=== PATIENT | male | born 1950 | race Caucasian/White ===

== ENCOUNTER 2021-04-07 09:13 | Observation (INO) | payer OTHER, MEDICARE ==
[~2021-04-07] VITALS: Ht 177.8 cm; Wt 157.7 kg
[2021-04-07] MEDS ORDERED: PARO20 PO (09:29)
[2021-04-07] MEDS ORDERED: Crestor20 MG PO (09:29)
[2021-04-07] MEDS ORDERED: Aspirin EC81 MG PO (09:29)
[2021-04-07 09:44] LABS: BASOPHILS ABSOLUTE AUTO 0.05 K/mm3 (0.00-0.23); BASOPHILS PERCENT AUTO 1 % (0-2); EOSINOPHILS ABSOLUTE AUTO 0.28 K/mm3 (0.00-0.68); EOSINOPHILS PERCENT AUTO 4 % (0-6); Hematocrit 45.9 % (37.0-53.0); Hemoglobin 15.2 g/dL (13.5-17.5); IMMATURE GRAN ABSOLUTE AUTO 0.05 K/mm3 (0.00-0.10); IMMATURE GRAN PERCENT AUTO 1 % (0-1); LYMPHOCYTES ABSOLUTE AUTO 1.61 K/mm3 (0.84-5.20); LYMPHOCYTES PERCENT AUTO 23 % (21-46); MONOCYTES ABSOLUTE AUTO 0.55 K/mm3 (0.16-1.47); MONOCYTES PERCENT AUTO 8 % (4-13); Mean Corpuscular HGB 30.6 pg (26.0-34.0); Mean Corpuscular HGB Conc 33.1 g/dL (31.5-36.5); Mean Corpuscular Volume 93 fL (80-100); NEUTROPHILS ABSOLUTE AUTO 4.47 K/mm3 (1.96-9.15); NEUTROPHILS PERCENT AUTO 64 % (41-73); Platelet Count 148 K/mm3 (150-400); RDW Coefficient Variation 13.4 % (11.7-14.2); RDW Standard Deviation 45.5 fL (35.1-46.3); Red Blood Cell Count 4.96 M/mm3 (4.30-5.90); White Blood Cell Count 7.01 K/mm3 (4.00-11.30)
[2021-04-07 10:03] LABS: Alanine Aminotransfer (ALT/SGP 38 U/L (12-78); Albumin, Blood 3.2 g/dL (3.4-5.0); Albumin/Globulin Ratio 0.9 (0.8-1.8); Alk Phos 106 U/L (50-136); Anion Gap 6 mmol/L (6-16); Aspartate Aminotrans (AST/SGOT 22 U/L (12-37); Bilirubin, Total 0.6 mg/dL (0.1-1.0); Blood Urea Nitrogen 11 mg/dL (8-24); Bun/Creatinine Ratio 11.9 (12.0-20.0); CO2, Blood 28 mmol/L (21-32); Calcium, Blood 8.5 mg/dL (8.5-10.1); Chloride, Blood 104 mmol/L (98-108); Creatinine, Blood 0.92 mg/dL (0.60-1.20); Globulin, Blood 3.6 g/dL (2.2-4.0); Glomerular Filtration Rate >60 (60-); Glucose, Blood 129 mg/dL (70-99); Potassium, Blood 3.9 mmol/L (3.5-5.5); Sodium, Blood 138 mmol/L (136-145); Total Protein, Blood 6.8 g/dL (6.4-8.2); Troponin I <0.015 ng/mL (0.000-0.040)
[2021-04-07 14:12] LABS: CPK Creatine Kinase 47 U/L (39-308)
[2021-04-07] MEDS ORDERED: PRAVASTATIN SOD10 MG PO (14:17)
[2021-04-07] MEDS ORDERED: METO25 PO (14:17)
[2021-04-07] MEDS ORDERED: Lisinopril2.5 MG PO (14:18)
[2021-04-07] MEDS ORDERED: HYDCHL25 PO (14:18)
[2021-04-07] MEDS ORDERED: ISOSORBIDE MONO10 MG PO (14:18)
--- NOTE | 2021-04-07 16:49 | NUR ---
ADMISSION/SHIFT SUMMARY ED ADMIT AT 1450. PATIENT ORIENTED TO ROOM. DENIES PAIN, NAUSEA, SHORTNESS OF BREATH. TELEMETRY SHOWS PACED AT 60 PER SUSTAINABLE SYSTEMS ANALYST. PATIENT UP INDEPENDENT IN ROOM. PLEASANT AND COOPERATIVE WITH CARE.
--- NOTE | 2021-04-07 22:43 | NUR ---
ASSUMPTION OF CARE. AOX3, INDPENDENT IN THE ROOM. REPORTS NO CHEST PAIN SINCE ARRIVAL TO THE FLOOR. [place] IS HOMELESS AND [place]. HE DOES NOT KNOW WHAT MEDICATION HE IS SUPPOSE TO BE ON OR THE DOSAGE HIS PILLS ARE IN HIS [place] THE [place]. DENIES ANY CARDIAC SYMPTOMS, PAIN, SOB, N/T, OR BLURRED VISION. TELE REPORTS SINUS WITH 1 DEGREE BLOCK RUNNING 60. VS WNL. AFEBRILE. WILL CONTINUE TO MONITOR. PATIENT CURRENTLY RESTING IN THE ROOM WATCHING TV. CALL LIGHT IN REACH.
[2021-04-08 02:16] LABS: BASOPHILS ABSOLUTE AUTO 0.03 K/mm3 (0.00-0.23); BASOPHILS PERCENT AUTO 0 % (0-2); EOSINOPHILS ABSOLUTE AUTO 0.33 K/mm3 (0.00-0.68); EOSINOPHILS PERCENT AUTO 5 % (0-6); Hematocrit 44.3 % (37.0-53.0); Hemoglobin 14.9 g/dL (13.5-17.5); IMMATURE GRAN ABSOLUTE AUTO 0.05 K/mm3 (0.00-0.10); IMMATURE GRAN PERCENT AUTO 1 % (0-1); LYMPHOCYTES ABSOLUTE AUTO 1.87 K/mm3 (0.84-5.20); LYMPHOCYTES PERCENT AUTO 26 % (21-46); MONOCYTES ABSOLUTE AUTO 0.71 K/mm3 (0.16-1.47); MONOCYTES PERCENT AUTO 10 % (4-13); Mean Corpuscular HGB 30.7 pg (26.0-34.0); Mean Corpuscular HGB Conc 33.6 g/dL (31.5-36.5); Mean Corpuscular Volume 91 fL (80-100); Mean Platelet Volume 11.4 fL (9.1-12.4); NEUTROPHILS ABSOLUTE AUTO 4.16 K/mm3 (1.96-9.15); NEUTROPHILS PERCENT AUTO 58 % (41-73); Platelet Count 143 K/mm3 (150-400); RDW Coefficient Variation 13.3 % (11.7-14.2); RDW Standard Deviation 45.3 fL (35.1-46.3); Red Blood Cell Count 4.85 M/mm3 (4.30-5.90); White Blood Cell Count 7.15 K/mm3 (4.00-11.30)
[2021-04-08 02:35] LABS: CPK Creatine Kinase 38 U/L (39-308)
[2021-04-08 02:36] LABS: Alanine Aminotransfer (ALT/SGP 34 U/L (12-78); Albumin, Blood 3.2 g/dL (3.4-5.0); Albumin/Globulin Ratio 0.9 (0.8-1.8); Alk Phos 99 U/L (50-136); Anion Gap 5 mmol/L (6-16); Aspartate Aminotrans (AST/SGOT 22 U/L (12-37); Bilirubin, Total 0.9 mg/dL (0.1-1.0); Blood Urea Nitrogen 11 mg/dL (8-24); Bun/Creatinine Ratio 10.8 (12.0-20.0); CO2, Blood 29 mmol/L (21-32); Calcium, Blood 8.7 mg/dL (8.5-10.1); Chloride, Blood 102 mmol/L (98-108); Creatinine, Blood 1.02 mg/dL (0.60-1.20); Globulin, Blood 3.4 g/dL (2.2-4.0); Glomerular Filtration Rate >60 (60-); Glucose, Blood 108 mg/dL (70-99); Potassium, Blood 3.9 mmol/L (3.5-5.5); Sodium, Blood 136 mmol/L (136-145); Total Protein, Blood 6.6 g/dL (6.4-8.2)
--- NOTE | 2021-04-08 06:17 | NUR ---
SHIFT SUMMARY: AOX3, INDEPENDENT. NO CP OR CARDIAC SYMPTOMS THIS SHIFT. VSS/AFEBRILE. TELE REPORTED SINUS WITH 1ST DEGREE HEART BLOCK. NO PAIN OR DISCOMFORT. GOOD APPETITE. MILD EDEMA IN LEGS. CURRENTLY LIVING IN TRUCK, JUST M[place], NEEDS TO GET SET UP WITH [facility]. NO OTHER CHANGES TO REPORT. CALL LIGHT REMAINS IN REACH AND USED APPROPRIATLY.
--- NOTE | 2021-04-08 18:40 | NUR ---
SHIFT SUMMARY NO ACUTE CHANGES T/O SHIFT, A&O, CALM AND COOPERATIVE. INDEPENDENT IN ROOM. DENIED ANY CHEST PAIN OR CARDIAC SYMPTOMS T/O SHIFT. PART ONE OF STRESS TEST COMPLETED TODAY, NEXT PORTION WILL BE DONE IN THE MORNING. CARE MANAGEMENT WORKING WITH PT AND [facility] REGARDING DC PLAN. PT IS CURRENTLY RESTING IN BED TALKING ON THE PHONE, CALL LIGHT WITHIN REACH.
--- NOTE | 2021-04-08 22:21 | NUR ---
ASSUMPTION OF CARE. AOX3, INDEPENDENT. DOING WELL AFTER FIRST PART OF STRESS TEST. STATES NOT MUCH CHANGES TODAY. VSS/AFEBRILE. AWARE OF NPO AFTER MIDNIGHT AND NO CAFFINE. NO CHEST PAIN TODAY, OR OTHER SYMPTOMS. VERY CONCERNED ABOUT HIS BELONGINGS AT THE [place]. MEDS GIVEN. PATIENT IN ROOM WATCHING TV. CALL LIGHT IN REACH.
--- NOTE | 2021-04-09 07:21 | NUR ---
SHIFT SUMMARY: AOX3, INDEPENDENT IN THE ROOM. NO CHEST PAIN OR CARDIAC SYMPTOMS NOTED. TELE REPORTS PACED RUNNING IN THE 60'S. NO EVENTS NOTED. TRACE EDEMA TO BLE. VSS/AFEBRILE. NPO AFTER MIDNIGHT EXCEPT FOR AM MEDS. SLEPT WELL. 2ND PART OF STRESS TEST TODAY. REPORT GIVEN TO DAYSHIFT. CALL LIGHT IN REACH.
--- NOTE | 2021-04-09 15:55 | NUR ---
PT DISCHARGE @ APPROX 1600. IV REMOVED AND SITE APPEARED WNL. DISCHARGE PAPERWORK REVIEWED WITH PT. NO NEW MEDICATIONS NEEDED TO BE FAXED TO PHARMACY. PT STATED HE HAD ALL OF HIS BELONGINGS INCLUDING HIS HEARING AIDS.
== END 2021-04-09 15:55 | disposition home or self-care (01) ==
LOC: ER 09:13 → MEDS 09:14 → ERHOLD 09:14 → MEDS 14:57
PROVIDERS: Emergency Medicine; ADMIT Internal Medicine
DX: R07.9 Chest pain, unspecified (principal); I25.10 Atherosclerotic heart disease of native coronary artery without angina pectoris; I10 Essential (primary) hypertension; I25.2 Old myocardial infarction; E66.9 Obesity, unspecified; E78.00 Pure hypercholesterolemia, unspecified; Z79.82 Long term (current) use of aspirin; Z95.5 Presence of coronary angioplasty implant and graft; Z95.0 Presence of cardiac pacemaker; Z59.0 Homelessness; Z68.43 Body mass index [BMI] 50.0-59.9, adult
CPT/HCPCS: 36415; 71045; 78452; 80053; 82550; 84484; 85025; 93005; 93010; 93017; 96372; 99285-25; A9270; A9500; G0378; J0706; J1650; J2785

== ENCOUNTER 2021-12-17 13:46 | Inpatient (IN) | payer OTHER ==
[~2021-12-17] VITALS: Ht 177.8 cm; Wt 158.3 kg
[~2021-12-17 13:46] MED LIST: Aspirin EC81 MG PO; Crestor20 MG PO; HYDCHL25 PO; ISOSORBIDE MONO10 MG PO; Lisinopril2.5 MG PO; METO25 PO; PARO20 PO; PRAVASTATIN SOD10 MG PO
[2021-12-17 14:53] LABS: BASOPHILS ABSOLUTE AUTO 0.04 K/mm3 (0.00-0.23); BASOPHILS PERCENT AUTO 0 % (0-2); EOSINOPHILS ABSOLUTE AUTO 0.12 K/mm3 (0.00-0.68); EOSINOPHILS PERCENT AUTO 1 % (0-6); Hematocrit 45.7 % (37.0-53.0); Hemoglobin 15.3 g/dL (13.5-17.5); IMMATURE GRAN ABSOLUTE AUTO 0.05 K/mm3 (0.00-0.10); IMMATURE GRAN PERCENT AUTO 0 % (0-1); LYMPHOCYTES PERCENT AUTO 16 % (21-46); MONOCYTES ABSOLUTE AUTO 1.09 K/mm3 (0.16-1.47); MONOCYTES PERCENT AUTO 9 % (4-13); Mean Corpuscular HGB 30.2 pg (26.0-34.0); Mean Corpuscular HGB Conc 33.5 g/dL (31.5-36.5); Mean Corpuscular Volume 90 fL (80-100); Mean Platelet Volume 10.5 fL (9.1-12.4); NEUTROPHILS ABSOLUTE AUTO 8.54 K/mm3 (1.96-9.15); NEUTROPHILS PERCENT AUTO 73 % (41-73); Platelet Count 154 K/mm3 (150-400); RDW Coefficient Variation 13.3 % (11.7-14.2); RDW Standard Deviation 43.6 fL (35.1-46.3); Red Blood Cell Count 5.07 M/mm3 (4.30-5.90); White Blood Cell Count 11.74 K/mm3 (4.00-11.30)
[2021-12-17] MEDS ORDERED: HYDCHL25 PO (14:54)
[2021-12-17 15:11] LABS: Anion Gap 5 mmol/L (6-16); Blood Urea Nitrogen 10 mg/dL (8-24); Bun/Creatinine Ratio 13.1 (12.0-20.0); CO2, Blood 28 mmol/L (21-32); Calcium, Blood 8.9 mg/dL (8.5-10.1); Chloride, Blood 104 mmol/L (98-108); Creatinine, Blood 0.76 mg/dL (0.60-1.20); Glomerular Filtration Rate >60 (60-); Glucose, Blood 119 mg/dL (70-99); Potassium, Blood 3.9 mmol/L (3.5-5.5); Sodium, Blood 137 mmol/L (136-145)
--- NOTE | 2021-12-17 17:45 | NUR ---
ARRIVES TO UNIT SBA TO HOSPITAL BED THEN REQUESTS TO USE BATHROOM. SBA THEN RETURNS TO DANGLE AT BEDSIDE. HOME MEDS & ALLERGIES REVIEWED, BLOOD CONSENT SIGNED, THEN DAY SURGERY ARRIVED & PT [facility]. NO ASSESSMENT COMPLETED DUE TO SHORT TIME IN ROOM.
[2021-12-17] MEDS ORDERED: ELIQUIS5 M2 PO (17:57)
[2021-12-17] MEDS ORDERED: NITR.4SL SL (17:58)
[2021-12-17] MEDS ORDERED: PSEUDOEPHEDRINE30 M1 PO (17:59)
--- NOTE | 2021-12-17 19:38 | NUR ---
12/17/211937 Balwinder Collazo PT ON SCHEDULED ANTIBIOTICS AND RECIEVED PIOR TO ARRIVAL TO OR.
--- NOTE | 2021-12-18 05:28 | NUR ---
PRIMARY CARE SALES REPRESENTATIVE SUMMARY PT HAD APPY PROCEDURE PRIOR TO COMING TO FLOOR. PT AAOX4 BUT A BIT GROGGY ON ARRIVAL. PT CLEARED FAIRLY QUICKLY. LAP INCISIONS X3 ON ABD C/D/I. PT DENIES PAIN ASIDE FROM A SLIGHT DISCOMFORT AT TIMES WHEN MOVING. PT DENIES NEED FOR PAIN MEDICATIONS THUS FAR. UP AND OUT OF BED THIS AM TO USE RESTROOM, PT HAS VOIDED. NO BM TONIGHT. ON 2L O2 VIA NC POST PROCEDURE, O2 SATS DOWN TO 90-91% ON RA SO PT NOW ON 1L O2 SATTING MID 90'S. VSS, WILL CONTINUE TO MONITOR.
[2021-12-18 05:33] LABS: BASOPHILS ABSOLUTE AUTO 0.02 K/mm3 (0.00-0.23); BASOPHILS PERCENT AUTO 0 % (0-2); EOSINOPHILS PERCENT AUTO 0 % (0-6); Hematocrit 47.9 % (37.0-53.0); Hemoglobin 15.4 g/dL (13.5-17.5); IMMATURE GRAN PERCENT AUTO 1 % (0-1); LYMPHOCYTES ABSOLUTE AUTO 0.91 K/mm3 (0.84-5.20); LYMPHOCYTES PERCENT AUTO 6 % (21-46); MONOCYTES ABSOLUTE AUTO 0.54 K/mm3 (0.16-1.47); MONOCYTES PERCENT AUTO 4 % (4-13); Mean Corpuscular HGB 29.9 pg (26.0-34.0); Mean Corpuscular HGB Conc 32.2 g/dL (31.5-36.5); Mean Corpuscular Volume 93 fL (80-100); Mean Platelet Volume 10.7 fL (9.1-12.4); NEUTROPHILS PERCENT AUTO 90 % (41-73); Platelet Count 167 K/mm3 (150-400); RDW Coefficient Variation 13.2 % (11.7-14.2); RDW Standard Deviation 45.3 fL (35.1-46.3); Red Blood Cell Count 5.15 M/mm3 (4.30-5.90); White Blood Cell Count 14.87 K/mm3 (4.00-11.30)
[2021-12-18 06:31] LABS: Alanine Aminotransfer (ALT/SGP 83 U/L (12-78); Albumin, Blood 3.3 g/dL (3.4-5.0); Albumin/Globulin Ratio 0.9 (0.8-1.8); Alk Phos 111 U/L (50-136); Anion Gap 8 mmol/L (6-16); Aspartate Aminotrans (AST/SGOT 59 U/L (12-37); Bilirubin, Total 2.3 mg/dL (0.1-1.0); Blood Urea Nitrogen 16 mg/dL (8-24); CO2, Blood 27 mmol/L (21-32); Calcium, Blood 8.9 mg/dL (8.5-10.1); Chloride, Blood 102 mmol/L (98-108); Creatinine, Blood 0.89 mg/dL (0.60-1.20); Globulin, Blood 3.6 g/dL (2.2-4.0); Glomerular Filtration Rate >60 (60-); Glucose, Blood 169 mg/dL (70-99); Potassium, Blood 4.3 mmol/L (3.5-5.5); Sodium, Blood 137 mmol/L (136-145); Total Protein, Blood 6.9 g/dL (6.4-8.2)
[2021-12-18] MEDS ORDERED: AMOCLA875 PO (12:13)
[2021-12-18] MEDS ORDERED: HYDR1TAB94 PO (13:37)
--- NOTE | 2021-12-18 15:26 | NUR ---
1523 DISCHARGED TO HOME . PT HAS DENIED NEED FOR PAIN MEDS, AMBULATING IN ROOM. VOIDING CLEAR YELLOW URINE. PT PATO PO FOOD AND FLUIDS WITHOUT NAUSEA. PT VERBALIZES UNDERSTANDING OF DISCHARGE INSTRUCTIONS
== END 2021-12-18 15:19 | disposition home or self-care (01) | DRG 339 ==
LOC: ER 13:46 → SURS 15:32 → MEDS 15:32 → SURS 17:47
PROVIDERS: Emergency Medicine; Nurse Practitioner Acute Care; Surgery; ADMIT Internal Medicine
PROC: 0DTJ4ZZ Resection of Appendix, Percutaneous Endoscopic Approach (ICD-10-PCS; principal; 2021-12-17 18:30)
DX: K35.32 Acute appendicitis with perforation, localized peritonitis, and gangrene, without abscess (principal); Z68.43 Body mass index [BMI] 50.0-59.9, adult; Z66 Do not resuscitate; E66.01 Morbid (severe) obesity due to excess calories; I10 Essential (primary) hypertension; I25.10 Atherosclerotic heart disease of native coronary artery without angina pectoris; I48.0 Paroxysmal atrial fibrillation; I49.5 Sick sinus syndrome; M54.9 Dorsalgia, unspecified; G89.29 Other chronic pain; F43.10 Post-traumatic stress disorder, unspecified; E78.5 Hyperlipidemia, unspecified; I25.2 Old myocardial infarction; Z79.01 Long term (current) use of anticoagulants; Z95.5 Presence of coronary angioplasty implant and graft; Z95.0 Presence of cardiac pacemaker; Z90.49 Acquired absence of other specified parts of digestive tract; Z79.899 Other long term (current) drug therapy; Z79.82 Long term (current) use of aspirin; Z98.890 Other specified postprocedural states
CPT/HCPCS: 36415; 80048; 80053; 85025; 88304; 93005; 93010; 96365; 96375; 99285-25; A9270; J0694; J1100; J1170; J1885; J2250; J2405; J2704; J3010; J7030; J7050; J7120

== ENCOUNTER 2024-11-04 05:42 | Emergency (ER) | payer OTHER ==
[~2024-11-04] VITALS: Ht 177.8 cm; Wt 113.8 kg
[~2024-11-04 05:42] MED LIST changes: +AMOCLA875 PO; +ELIQUIS5 M2 PO; +HYDR1TAB94 PO; +NITR.4SL SL; +PSEUDOEPHEDRINE30 M1 PO
[2024-11-04 06:37] LABS: BASOPHILS ABSOLUTE AUTO 0.08 K/mm3 (0.00-0.23); BASOPHILS PERCENT AUTO 1 % (0-2); EOSINOPHILS ABSOLUTE AUTO 0.36 K/mm3 (0.00-0.68); EOSINOPHILS PERCENT AUTO 4 % (0-6); Hematocrit 44.8 % (37.0-53.0); Hemoglobin 15.4 g/dL (13.5-17.5); IMMATURE GRAN ABSOLUTE AUTO 0.14 K/mm3 (0.00-0.10); IMMATURE GRAN PERCENT AUTO 1 % (0-1); LYMPHOCYTES ABSOLUTE AUTO 1.83 K/mm3 (0.84-5.20); LYMPHOCYTES PERCENT AUTO 19 % (21-46); MONOCYTES ABSOLUTE AUTO 0.61 K/mm3 (0.16-1.47); MONOCYTES PERCENT AUTO 6 % (4-13); Mean Corpuscular HGB 31.6 pg (26.0-34.0); Mean Corpuscular HGB Conc 34.4 g/dL (31.5-36.5); Mean Corpuscular Volume 92 fL (80-100); NEUTROPHILS ABSOLUTE AUTO 6.71 K/mm3 (1.96-9.15); NEUTROPHILS PERCENT AUTO 69 % (41-73); Platelet Count 183 K/mm3 (150-400); RDW Coefficient Variation 13.4 % (11.7-14.2); RDW Standard Deviation 45.3 fL (35.1-46.3); Red Blood Cell Count 4.88 M/mm3 (4.30-5.90); White Blood Cell Count 9.73 K/mm3 (4.00-11.30)
[2024-11-04 07:00] LABS: Bun/Creatinine Ratio 12.4 (12.0-20.0); Calcium, Blood 9.4 mg/dL (8.5-10.1); Creatinine, Blood 0.96 mg/dL (0.60-1.20); Potassium, Blood 4.2 mmol/L (3.5-5.5)
[2024-11-04] MEDS ORDERED: BISA10S PR (07:32)
[2024-11-04] MEDS ORDERED: METO10 PO (07:32)
[2024-11-04 08:50] VITALS: BP 122/88
== END 2024-11-04 08:55 | disposition home or self-care (01) ==
LOC: ER 05:42
PROVIDERS: Emergency Medicine
DX: K59.00 Constipation, unspecified (principal); I10 Essential (primary) hypertension; E78.00 Pure hypercholesterolemia, unspecified; F43.10 Post-traumatic stress disorder, unspecified; Z87.891 Personal history of nicotine dependence; Z79.82 Long term (current) use of aspirin; Z79.899 Other long term (current) drug therapy; Z88.0 Allergy status to penicillin; Z88.8 Allergy status to other drugs, medicaments and biological substances
CPT/HCPCS: 51798; 74018; 80048; 85025; 99283-25